=== PATIENT | female | born 1965 | race American Indian/Alaskan Native ===

== ENCOUNTER 2018-09-05 12:59 | Emergency (ER) | payer BC ==
[2018-09-05 13:03] VITALS: BP 131/84; PULSE 86; RESP 14; TEMP 97; O2SAT 99
--- NOTE | 2018-09-05 14:53 | ED PDOC ---
Upper Extremity Pain/Injury Time Seen by Provider: 09/05/18 13:24 Chief Complaint (Nursing): Upper Extremity Problem/Injury Chief Complaint (Provider): Left Shoulder and Elbow Pain History Per: Patient History/Exam Limitations: no limitations Onset/Duration Of Symptoms: Worse Since (last night) Current Symptoms Are (Timing): Still Present Additional Complaint(s): 53 year old female presents to the ED for evaluation of left shoulder and elbow pain. Patient reports that over the summer, she had onset of localized atraumatic left elbow pain. On 08/21/18 patient states that she was moving and injured her left shoulder, but does not remember exactly how. Ever since, she has had intermittent pain to the shoulder and elbow, but after hearing a "cracking sensation" in her shoulder last night, she decided to come in for evaluation today. Otherwise, denies chest pain, shortness of breath, numbness, weakness, and back pain. PMD: DIAMOND Past Medical History Reviewed: Historical Data, Nursing Documentation, Vital Signs Vital Signs: Last Vital Signs Temp 97 F L 09/05/18 13:01 Pulse 86 09/05/18 13:01 Resp 14 09/05/18 13:01 BP 131/84 09/05/18 13:01 Pulse Ox 99 09/05/18 13:01 - Medical History PMH: Diabetes, HTN - Surgical History Other surgeries: sebacous gland surgery - Family History Family History: States: Unknown Family Hx - Social History Current smoker - smoking cessation education provided: No Alcohol: None Drugs: Denies - Home Medications Home Medications: Ambulatory Orders Medication Instructions Recorded Meloxicam [Mobic] 7.5 mg PO DAILY PRN #10 tab 09/05/18 - Allergies Allergies/Adverse Reactions: Allergies Allergy/AdvReac Type Severity Reaction Status Date / Time Penicillins Allergy RASH Verified 09/05/18 13:00 Review of Systems ROS Statement: Except As Marked, All Systems Reviewed And Found Negative Cardiovascular: Negative for: Chest Pain Respiratory: Negative for: Shortness of Breath Musculoskeletal: Positive for: Shoulder Pain (left), Other (left elbow pain). Negative for: Back Pain Neurological: Negative for: Weakness, Numbness Physical Exam - Reviewed Nursing Documentation Reviewed: Yes Vital Signs Reviewed: Yes - Physical Exam Pulses-Radial (L): 2+ Pulses-Radial (R): 2+ Extremity: Positive for: Other (no swelling, tenderness, deformity, or break in skin integrity to entire left upper extremity; equal debone supervisor strength to bilateral upper extremities) - ECG ECG: Positive for: Interpreted By Me, Viewed By Me ECG Rhythm: Positive for: Normal ST Segment, Sinus Rhythm (normal at 80bpm). Negative for: ST/T Changes O2 Sat by Pulse Oximetry: 99 (RA) Pulse Ox Interpretation: Normal Medical Decision Making Medical Decision Making: Time: 1331 Initial Impression: left shoulder and elbow pain Initial Plan: --EKG --Toradol 15mg IM --Left elbow XR --Left shoulder XR Both XRs reviewed by ALBER and show no acute fracture or dislocation. Patient informed this is a prelimary read and any discrepancies in the official reads will be communicated to her within 24 hours. Given a sling upon discharge. Scribe Attestation: Documented by Blaire Tay, acting as a scribe for Stan Gould PA-C. Provider Scribe Attestation: All medical record entries made by the Scribe were at my direction and personally dictated by me. I have reviewed the chart and agree that the record accurately reflects my personal performance of the history, physical exam, medical decision making, and the department course for this patient. I have also personally directed, reviewed, and agree with the discharge instructions and disposition. Disposition - Clinical Impression Clinical Impression: Elbow pain, Shoulder pain - Patient ED Disposition Is Patient to be Admitted: No - Disposition Referrals: Chapis Ramirez MD [Staff Provider] - Disposition: Routine/Home Disposition Time: 14:52 Condition: STABLE Additional Instructions: DERECK OLIVEIRA, thank you for letting us take care of you today. Your provider was Bishnu Hinds MD and you were treated for LT ARM PAIN. The emergency medical care you received today was directed at your acute symptoms. If you were prescribed any medication, please fill it and take as directed. It may take several days for your symptoms to resolve. Return to the Emergency Department if your symptoms worsen, do not improve, or if you have any other problems. Please contact your doctor or call one of the physicians/clinics you have been referred to that are listed on the Patient Visit Information form that is included in your discharge packet. Bring any paperwork you were given at discharge with you along with any medications you are taking to your follow up visit. Our treatment cannot replace ongoing medical care by a primary care provider outside of the emergency department. Thank you for allowing the [facility] team to be part of your care today. If you had an X-Ray or CT scan: A Radiologist will review the ED reading if any change in treatment is needed we will contact you. If you had a blood, urine, or wound culture: It will take several days for the results, if any change in treatment is needed we will contact you. If you had an STI test: It will take 48 hours for the results. Please call after 1 week if you have not heard back. Prescriptions: Meloxicam [Mobic] 7.5 mg PO DAILY PRN #10 tab PRN Reason: pain Instructions: Joint Pain Forms: [employer] (Albanian), [facility] ED School/Work Excuse Print Language: WELSH
--- NOTE | 2018-09-05 16:04 | RAD ---
Date of service: 09/05/2018 PROCEDURE: Radiographs of the Left Shoulder HISTORY: pain COMPARISON: No prior. FINDINGS: BONES: No acute fracture or destructive bony lesion identified. JOINTS: Normal. Glenohumeral and acromioclavicular joints preserved. No osteoarthritis. SOFT TISSUES: Normal. OTHER FINDINGS: None. IMPRESSION: Unremarkable radiographs of the left shoulder.
--- NOTE | 2018-09-05 16:04 | RAD ---
Date of service: 09/05/2018 PROCEDURE: Radiographs of the left elbow. HISTORY: pain COMPARISON: No prior. FINDINGS: BONES: No acute fracture or destructive bony lesion identified. JOINTS: Normal. No osteoarthritis. SOFT TISSUES: Normal. JOINT EFFUSION: None. OTHER FINDINGS: None IMPRESSION: Unremarkable radiographs of the left elbow.
--- NOTE | 2018-09-05 20:24 | CARD ---
APPROVED REPORT Date of service: 09/05/2018 EKG Measurement Heart [id number] <Conclusion> Normal sinus rhythm Normal ECG
== END 2018-09-05 15:09 | disposition home or self-care (01) ==
LOC: H.ER 12:59
DX: M25.522 Pain in left elbow (principal); M25.512 Pain in left shoulder; E11.9 Type 2 diabetes mellitus without complications; I10 Essential (primary) hypertension; Z88.0 Allergy status to penicillin
CPT/HCPCS: 73030; 73080; 93005; 96372; 99283; J1885